=== PATIENT | male | born 1965 | race African-American/Black ===

== ENCOUNTER 2017-08-21 14:27 | Emergency (ER) | payer MEDICAID, OTHER ==
[~2017-08-21] VITALS: Ht 172.7 cm; Wt 98.0 kg
[~2017-08-21 14:27] MED LIST: EPSICON; KALETRA; LISINOPRIL
[2017-08-21] MEDS ORDERED: METF10002 PO (14:38)
[2017-08-21] MEDS ORDERED: ONDANSETRON HCL 4MG/2ML VIAL IV STA (16:36)
[2017-08-21] MEDS ORDERED: MORPHINE SULFATE 4 MG/ML CPJ (NOT FOR IM USE) IV STA (16:36)
[2017-08-21] MEDS ORDERED: SODIUM CHLORIDE 0.9% 1,000 ML IV ONE (16:36)
[2017-08-21 17:31] LABS: BASOPHILS % 0.7 % (0.0-2.0); EOSINOPHILS % 0.8 % (0.0-5.0); HEMATOCRIT. 38.5 % (42.0-52.0); HEMOGLOBIN. 13.6 g/dL (14.0-18.0); LYMPHOCYTES % 28.5 % (20.0-50.0); MEAN CORPUSCULAR HEMOGLOBIN 30.9 pg (28.0-32.0); MEAN CORPUSCULAR VOLUME 87.7 fL (80.0-94.0); MEAN PLATELET VOLUME 7.9 fl (7.4-10.4); MONOCYTES % 12.6 % (2.0-8.0); NEUTROPHILS % 57.4 % (40.0-76.0); PLATELET 259 x1000/uL (130-400); RED BLOOD CELL COUNT 4.39 mill/uL (4.7-6.1); RED CELL DISTRIBUTION WIDTH 13.4 % (11.6-14.6)
[2017-08-21 17:35] LABS: PROTHROMBIN TIME 10.7 sec (9.4-11.6)
[2017-08-21 17:42] LABS: CHLORIDE 101 mEq/L (98-107)
[2017-08-21 17:51] LABS: CARBON DIOXIDE 28 mEq/L (21-32); TROPONIN I < 0.02 ng/mL (0.00-0.04)
[2017-08-21] MEDS ORDERED: MORPHINE SULFATE 10 MG/ML CPJ IV NR (18:18)
[2017-08-21 19:02] LABS: CLARITY URINE CLEAR (CLEAR); COLOR URINE YELLOW (YELLOW); GLUCOSE URINE NEGATIVE (NEGATIVE); KETONES URINE NEGATIVE (NEGATIVE); LEUKOCYTE ESTERASE URINE NEGATIVE (NEGATIVE); NITRITE URINE NEGATIVE (NEGATIVE); OCCULT BLOOD URINE NEGATIVE (NEGATIVE); PH URINE 7.5 (4.5-8.0); PROTEIN URINE NEGATIVE (NEGATIVE); UROBILINOGEN URINE 0.2 E.U./dL (0.2-1.0)
[2017-08-21 23:23] VITALS: BP 131/79
== END 2017-08-21 23:26 | disposition home or self-care (01) ==
LOC: ER 15:56
DX: R19.7 Diarrhea, unspecified (principal); M25.511 Pain in right shoulder; R10.31 Right lower quadrant pain; G62.9 Polyneuropathy, unspecified; E11.65 Type 2 diabetes mellitus with hyperglycemia; F17.200 Nicotine dependence, unspecified, uncomplicated; R42 Dizziness and giddiness; R20.0 Anesthesia of skin
CPT/HCPCS: 36415; 71010; 73030; 74176; 80053; 81003; 83605; 83690; 83880; 84484; 85025; 85610; 93005; 96361; 96374; 96375; 99285; J2270; J2405; J7030

== ENCOUNTER 2018-04-09 18:01 | Emergency (ER) | payer MEDICAID ==
[~2018-04-09] VITALS: Ht 175.3 cm; Wt 91.0 kg
[~2018-04-09 18:01] MED LIST changes: +METF10004 PO
[2018-04-09 18:41] VITALS: BP 146/96
== END 2018-04-09 19:40 | disposition left against medical advice (07) ==
LOC: ER 19:30
DX: M79.641 Pain in right hand (principal); M25.531 Pain in right wrist; I10 Essential (primary) hypertension; E11.9 Type 2 diabetes mellitus without complications
CPT/HCPCS: 99281

== ENCOUNTER 2018-04-10 11:41 | Emergency (ER) | payer MEDICAID ==
[~2018-04-10] VITALS: Ht 175.3 cm; Wt 95.0 kg
[2018-04-10 11:53] VITALS: BP 158/99
[2018-04-10] MEDS ORDERED: IBUPROFEN 800MG TABLET PO ONE (12:15)
== END 2018-04-10 13:29 | disposition home or self-care (01) ==
LOC: ER 11:41
DX: M79.1 Myalgia (principal); G56.01 Carpal tunnel syndrome, right upper limb; E11.9 Type 2 diabetes mellitus without complications; I10 Essential (primary) hypertension; Z79.84 Long term (current) use of oral hypoglycemic drugs
CPT/HCPCS: 29125; 73120; 99284

== ENCOUNTER 2018-05-13 13:37 | Emergency (ER) | payer MEDICAID ==
[~2018-05-13] VITALS: Ht 175.3 cm; Wt 93.0 kg
[2018-05-13] MEDS ORDERED: IBUPROFEN 800MG TABLET PO ONE (15:00)
[2018-05-13 15:31] VITALS: BP 166/108
== END 2018-05-13 15:14 | disposition home or self-care (01) ==
LOC: ER 13:37
DX: M25.531 Pain in right wrist (principal); E11.9 Type 2 diabetes mellitus without complications; I10 Essential (primary) hypertension
CPT/HCPCS: 73110; 99284

== ENCOUNTER 2019-01-19 18:15 | Emergency (ER) | payer MEDICAID ==
[~2019-01-19] VITALS: Ht 175.3 cm; Wt 100.0 kg
[~2019-01-19 18:15] MED LIST changes: +METF-416 PO; -METF10004 PO
[2019-01-19] MEDS ORDERED: SODIUM CHLORIDE 0.9% 1,000 ML IV ONE ×2 (20:47→22:14)
[2019-01-19] MEDS ORDERED: KETOROLAC 15MG/ML VIAL IV ONE (21:00)
[2019-01-19] MEDS ORDERED: AMPICILLIN SOD/SULBACTAM NA 1.5 G in SODIUM CHLORIDE 0.9% 50 ML IV SCH (21:00)
[2019-01-19] MEDS ORDERED: DEXAMETHASONE 10 MG/ML VIAL IV ONE (21:00)
[2019-01-19 21:45] LABS: CLARITY URINE CLEAR (CLEAR); COLOR URINE YELLOW (YELLOW); KETONES URINE NEGATIVE (NEGATIVE); LEUKOCYTE ESTERASE URINE NEGATIVE (NEGATIVE); NITRITE URINE NEGATIVE (NEGATIVE); OCCULT BLOOD URINE NEGATIVE (NEGATIVE); PROTEIN URINE NEGATIVE (NEGATIVE); SPECIFIC GRAVITY URINE 1.039 (1.005-1.030)
[2019-01-19 21:48] LABS: BASOPHILS % 0.4 % (0.0-2.0); EOSINOPHILS % 0.9 % (0.0-5.0); HEMATOCRIT. 40.7 % (42.0-52.0); HEMOGLOBIN. 14.2 g/dL (14.0-18.0); LYMPHOCYTES % 11.2 % (20.0-50.0); MEAN CORPUSCULAR HEMOGLOBIN 31.2 pg (28.0-32.0); MEAN CORPUSCULAR VOLUME 89.1 fL (80.0-94.0); MEAN PLATELET VOLUME 9.1 fl (7.4-10.4); MONOCYTES % 11.5 % (2.0-8.0); PLATELET 374 x1000/uL (130-400); RED BLOOD CELL COUNT 4.56 mill/uL (4.7-6.1); RED CELL DISTRIBUTION WIDTH 14.6 % (11.6-14.6)
[2019-01-19 21:49] LABS: CHLORIDE 100 mEq/L (98-107)
[2019-01-19] MEDS ORDERED: HYDRALAZINE 20MG/ML VIAL IV ONE (22:00)
[2019-01-19] MEDS ORDERED: MORPHINE SULFATE 4 MG/ML CPJ (NOT FOR IM USE) IV ONE (23:00)
[2019-01-19] MEDS ORDERED: ONDANSETRON HCL 4MG/2ML INJ IV ONE (23:00)
[2019-01-20] MEDS ORDERED: IOHEXOL-300 100 ML BOTTLE ONE (00:56)
[2019-01-20 01:54] VITALS: BP 148/82
== END 2019-01-20 01:58 | disposition home or self-care (01) ==
LOC: ER 18:15 → CANBEDREQ 01-20 03:16
DX: K12.2 Cellulitis and abscess of mouth (principal); E11.65 Type 2 diabetes mellitus with hyperglycemia; I10 Essential (primary) hypertension
CPT/HCPCS: 36415; 70491; 80053; 81003; 85025; 87040; 87077; 87086; 87186; 96365; 96375; 99284; J0295; J0360; J1100; J1885; J2270; J2405; J7030; Q9967; Z7610

== ENCOUNTER 2019-01-21 12:31 | Emergency (ER) | payer MEDICAID ==
[~2019-01-21] VITALS: Ht 175.3 cm; Wt 81.0 kg
[2019-01-21] MEDS ORDERED: ONDANSETRON HCL 4MG/2ML INJ IV STA (15:15)
[2019-01-21] MEDS ORDERED: MORPHINE SULFATE 4 MG/ML CPJ (NOT FOR IM USE) IV STA (15:15)
[2019-01-21] MEDS ORDERED: VANCOMYCIN 1 G PREMIX 200 ML IV ONE (15:15)
[2019-01-21] MEDS ORDERED: SODIUM CHLORIDE 0.9% 1,000 ML IV ONE ×2 (15:15→16:29)
[2019-01-21] MEDS ORDERED: DEXAMETHASONE 10 MG/ML VIAL IV ONE (15:15)
[2019-01-21] MEDS ORDERED: PIPERACILLIN/TAZ 3.375G PREMIX 50 ML IV ONE (15:15)
[2019-01-21 15:44] LABS: BASOPHILS % 0.5 % (0.0-2.0); EOSINOPHILS % 0.3 % (0.0-5.0); HEMOGLOBIN. 11.8 g/dL (14.0-18.0); LYMPHOCYTES % 13.6 % (20.0-50.0); MEAN CORPUSCULAR HEMOGLOBIN 30.5 pg (28.0-32.0); MEAN PLATELET VOLUME 8.3 fl (7.4-10.4); MONOCYTES % 14.9 % (2.0-8.0); NEUTROPHILS % 70.7 % (40.0-76.0); PLATELET 332 x1000/uL (130-400); RED BLOOD CELL COUNT 3.85 mill/uL (4.7-6.1)
[2019-01-21 15:48] LABS: CHLORIDE 93 mEq/L (98-107)
[2019-01-21 15:49] LABS: INR 0.9; PROTHROMBIN TIME 9.4 sec (9.6-11.0)
[2019-01-21] MEDS ORDERED: KETOROLAC 30MG/ML VIAL IV ONE (16:15)
[2019-01-21] MEDS ORDERED: INSULIN REGULAR (HUMULIN R) 300UNITS/3ML SUBCUT ONE (16:30)
[2019-01-21] MEDS ORDERED: INSULIN REGULAR (HUMULIN R) 300UNITS/3ML IV ONE (16:30)
[2019-01-21 18:19] VITALS: BP 134/86
== END 2019-01-21 18:35 | disposition home or self-care (01) ==
LOC: ER 12:31
DX: L03.211 Cellulitis of face (principal); E11.65 Type 2 diabetes mellitus with hyperglycemia; E78.00 Pure hypercholesterolemia, unspecified; I10 Essential (primary) hypertension; F17.200 Nicotine dependence, unspecified, uncomplicated; Z79.899 Other long term (current) drug therapy
CPT/HCPCS: 36415; 80053; 82010; 82962; 83605; 84145; 84484; 85025; 85610; 87040; 96365; 96366; 96368; 96372; 96375; 99283; J1100; J1815; J1885; J2270; J2405; J2543; J3370; J7030

== ENCOUNTER 2020-02-07 12:19 | Inpatient (IN) | payer MEDICAID ==
[~2020-02-07] VITALS: Ht 172.7 cm; Wt 83.2 kg
[~2020-02-07 12:19] MED LIST changes: +ASPI-1160 PO; +EMTR1TAB13 MT; -EPSICON; -KALETRA
[2020-02-07] MEDS ORDERED: SODIUM CHLORIDE 0.9% 1,000 ML IV ONE ×2 (12:54→23:59)
[2020-02-07 14:01] LABS: BASOPHILS % 0.5 % (0.0-2.0); EOSINOPHILS % 0.9 % (0.0-5.0); HEMATOCRIT. 35.5 % (42.0-52.0); HEMOGLOBIN. 12.5 g/dL (14.0-18.0); LYMPHOCYTES % 22.7 % (20.0-50.0); MEAN CORPUSCULAR HEMOGLOBIN 30.7 pg (28.0-32.0); MEAN CORPUSCULAR VOLUME 87.3 fL (80.0-94.0); MEAN PLATELET VOLUME 7.6 fl (7.4-10.4); NEUTROPHILS % 62.9 % (40.0-76.0); PLATELET 305 x1000/uL (130-400); RED BLOOD CELL COUNT 4.06 mill/uL (4.7-6.1)
[2020-02-07 14:06] LABS: CHLORIDE 106 mEq/L (98-107)
[2020-02-07 14:10] LABS: ETHANOL BLOOD < 10 mg/dL
[2020-02-07 14:19] LABS: PROTHROMBIN TIME 11.1 sec (9.6-11.0)
[2020-02-07] MEDS ORDERED: SODIUM CHLORIDE 0.9% 1000ML BAG (SEPSIS BOLUS) IV ONE (14:30)
[2020-02-07 14:33] LABS: CLARITY URINE CLEAR (CLEAR); COLOR URINE YELLOW (YELLOW); KETONES URINE NEGATIVE (NEGATIVE); LEUKOCYTE ESTERASE URINE NEGATIVE (NEGATIVE); NITRITE URINE NEGATIVE (NEGATIVE); OCCULT BLOOD URINE NEGATIVE (NEGATIVE); PH URINE 6.5 (4.5-8.0); PROTEIN URINE NEGATIVE (NEGATIVE); SPECIFIC GRAVITY URINE 1.012 (1.005-1.030); UROBILINOGEN URINE 0.2 E.U./dL (0.2-1.0)
[2020-02-07 14:46] LABS: *AMPHETAMINES SCREEN URINE NEGATIVE (NEGATIVE); *BARBITURATES SCREEN URINE NEGATIVE (NEGATIVE); *COCAINE SCREEN URINE NEGATIVE (NEGATIVE); CANNABINOID URINE SCREEN NEGATIVE (NEGATIVE); METHADONE URINE SCREEN NEGATIVE (NEGATIVE); OPIATES URINE SCREEN NEGATIVE (NEGATIVE); PHENCYCLIDINE URINE SCREEN NEGATIVE (NEGATIVE)
[2020-02-07 14:48] LABS: *BENZODIAZEPINES SCREEN URINE NEGATIVE (NEGATIVE)
[2020-02-07] MEDS ORDERED: ONDANSETRON HCL 4MG/2ML INJ IV PRN (16:15)
[2020-02-07] MEDS ORDERED: PIPERACILLIN/TAZ 3.375G PREMIX 50 ML IV SCH (16:15)
[2020-02-07] MEDS ORDERED: DIPHENHYDRAMINE 50MG/ML VIAL IV PRN (16:15)
[2020-02-07] MEDS ORDERED: CLONIDINE 0.1MG TABLET PO PRN (16:15)
[2020-02-07 17:06] LABS: PHOSPHORUS 3.3 mg/dL (2.5-4.9)
[2020-02-07 23:00] VITALS: BP 141/100
[2020-02-07] MEDS ORDERED: IPRATROPIUM/ALBUTEROL 0.5-3(2.5)MG/3ML NEB HHN PRN (23:44)
[2020-02-08] VITALS: BP 152/105
[2020-02-08 04:00] VITALS: BP 122/90
[2020-02-08] MEDS: PIPERACILLIN/TAZOBACTAM 3.375 G in DEXT 5% WATER 100 ML IV SCH ×3 (06:30→13:46)
[2020-02-08 07:05] LABS: BASOPHILS % 0.5 % (0.0-2.0); EOSINOPHILS % 2.5 % (0.0-5.0); HEMATOCRIT. 30.6 % (42.0-52.0); HEMOGLOBIN. 10.7 g/dL (14.0-18.0); LYMPHOCYTES % 37.4 % (20.0-50.0); MEAN CORPUSCULAR HEMOGLOBIN 30.7 pg (28.0-32.0); MEAN CORPUSCULAR VOLUME 87.5 fL (80.0-94.0); MEAN PLATELET VOLUME 7.5 fl (7.4-10.4); MONOCYTES % 11.8 % (2.0-8.0); NEUTROPHILS % 47.8 % (40.0-76.0); PLATELET 251 x1000/uL (130-400); RED BLOOD CELL COUNT 3.49 mill/uL (4.7-6.1); RED CELL DISTRIBUTION WIDTH 14.2 % (11.6-14.6)
[2020-02-08 08:00] VITALS: BP 136/76
[2020-02-08] MEDS ORDERED: MAGNESIUM 2 G PREMIX 50 ML IV NR (08:00)
[2020-02-08 08:01] LABS: CHLORIDE 113 mEq/L (98-107)
[2020-02-08 08:30] LABS: LDL CHOLESTEROL 80 mg/dL (5-100)
[2020-02-08 08:31] LABS: HDL CHOLESTEROL 44 mg/dL (40-59)
[2020-02-08 12:00] VITALS: BP 137/95
[2020-02-08 13:47] VITALS: BP 137/85
== END 2020-02-08 15:12 | disposition home or self-care (01) | DRG 47 ==
LOC: ER 12:19 → 5WST 15:46 → EDBEDREQ 15:48 → EDBEDREQTM 15:48 → ENRESERV 21:53
PROVIDERS: ADMIT Internal Medicine; ATTEND Internal Medicine
DX: G45.9 Transient cerebral ischemic attack, unspecified (principal); E83.42 Hypomagnesemia; E78.00 Pure hypercholesterolemia, unspecified; I10 Essential (primary) hypertension; Z21 Asymptomatic human immunodeficiency virus [HIV] infection status; E11.9 Type 2 diabetes mellitus without complications; Z79.82 Long term (current) use of aspirin; Z79.84 Long term (current) use of oral hypoglycemic drugs; Z79.899 Other long term (current) drug therapy; Z87.891 Personal history of nicotine dependence
CPT/HCPCS: 36415; 71045; 80053; 80061; 80305; 80320; 81003; 83605; 83735; 83880; 84100; 84145; 84443; 84484; 85025; 86850; 86900; 93005; 93970; 97161; 97166; 99285; J2543; J3475; J7030; J7060; G0480

== ENCOUNTER 2022-11-28 13:28 | Inpatient (IN) | payer MEDICAID, OTHER ==
[~2022-11-28] VITALS: Ht 175.3 cm; Wt 88.5 kg
[2022-11-28] MEDS ORDERED: SODIUM CHLORIDE 0.9% 1,000 ML IV ONE ×2 (13:45→15:15)
[2022-11-28 14:34] LABS: BASOPHILS % 0.7 % (0.0-2.0); EOSINOPHILS % 0.9 % (0.0-5.0); HEMATOCRIT. 39.4 % (42.0-52.0); HEMOGLOBIN. 13.4 g/dL (14.0-18.0); LYMPHOCYTES % 25.6 % (20.0-50.0); MEAN CORPUSCULAR HEMOGLOBIN 29.8 pg (28.0-32.0); MEAN CORPUSCULAR VOLUME 87.5 fL (80.0-94.0); MEAN PLATELET VOLUME 9.4 fl (7.4-10.4); MONOCYTES % 11.8 % (2.0-8.0); PLATELET 343 x1000/uL (130-400); RED CELL DISTRIBUTION WIDTH 13.1 % (11.6-14.6)
[2022-11-28 14:37] LABS: BG BASE EXCESS 0.9 mmol/L (-2.0-2.0); BG CARBOXYHEMOGLOBIN 1.4 % (0.5-1.5); BG FRACTION INSPIRED OXYGEN 21; BG HCO3 ACT 25.2 mmol/L (22.0-26.0); BG METHEMOGLOBIN 0.3 % (0.0-1.5); BG OXYGEN SATURATION 95.9 % (92.0-98.5); BG OXYHEMOGLOBIN 94.3 % (94.0-97.0); BG PCO2 39.2 mmHg (35.0-45.0); BG PH 7.426 (7.350-7.450); BG PO2 82.6 mmHg (75.0-100.0); BG SAMPLE SITE RIGHT BRACHIAL; BG TOTAL HEMOGLOBIN 13.5 g/dL (12.0-18.0); BG VENT MODE ROOM AIR
[2022-11-28 14:46] LABS: CHLORIDE 96 mEq/L (98-107)
[2022-11-28 14:47] LABS: PROTHROMBIN TIME 10.3 sec (9.6-11.0)
[2022-11-28 14:52] LABS: BETA HYDROXYBUTYRATE 0.2 mMol/L (0.0-0.3); ETHANOL BLOOD < 10 mg/dL
[2022-11-28 15:13] LABS: CLARITY URINE CLEAR (CLEAR); COLOR URINE YELLOW (YELLOW); KETONES URINE NEGATIVE (NEGATIVE); LEUKOCYTE ESTERASE URINE NEGATIVE (NEGATIVE); NITRITE URINE NEGATIVE (NEGATIVE); OCCULT BLOOD URINE NEGATIVE (NEGATIVE); PH URINE 7.5 (4.5-8.0); PROTEIN URINE NEGATIVE (NEGATIVE); SPECIFIC GRAVITY URINE 1.041 (1.005-1.030)
[2022-11-28 15:42] LABS: *AMPHETAMINES SCREEN URINE NEGATIVE (NEGATIVE); *BARBITURATES SCREEN URINE NEGATIVE (NEGATIVE); *BENZODIAZEPINES SCREEN URINE NEGATIVE (NEGATIVE); *COCAINE SCREEN URINE PRESUMTIVE POSITIVE (NEGATIVE); CANNABINOID URINE SCREEN NEGATIVE (NEGATIVE); METHADONE URINE SCREEN NEGATIVE (NEGATIVE); OPIATES URINE SCREEN NEGATIVE (NEGATIVE); PHENCYCLIDINE URINE SCREEN NEGATIVE (NEGATIVE)
[2022-11-29 11:00] VITALS: BP 145/89
[2022-11-29 11:30] VITALS: BP 145/97
[2022-11-29] MEDS ORDERED: DEXTROSE 50% WATER 50ML SYRINGE IV PRN (12:15)
[2022-11-29] MEDS ORDERED: ONDANSETRON HCL 4MG/2ML INJ IV PRN (12:15)
[2022-11-29] MEDS ORDERED: ACETAMINOPHEN 325MG TABLET PO PRN (12:15)
[2022-11-29] MEDS: BLOOD SUGAR DIAGNOSTIC STRIP TEST SCH ×2 (12:20→17:46)
[2022-11-29] MEDS ORDERED: INSULIN GLARGINE 100 UNITS/ML SUBCUT NR (12:30)
[2022-11-29] MEDS ORDERED: INSULIN LISPRO 100 UNITS/ML SUBCUT SCH (12:50)
[2022-11-29] MEDS ORDERED: INSU100I28 SQ (17:07)
[2022-11-29] MEDS ORDERED: CLOT15CR27 TP (17:07)
[2022-11-29] MEDS ORDERED: CLOTRIMAZOLE 1% CREAM 15GM TOP SCH (18:00)
[2022-11-29] MEDS ORDERED: INSULIN GLARGINE 100 UNITS/ML SUBCUT SCH (22:00)
== END 2022-11-29 17:30 | disposition home or self-care (01) | DRG 282 ==
LOC: ER 13:28 → 6EST 11-29 03:26 → EDBEDREQSVC 11-29 03:30 → EDBEDREQDT 11-29 03:30 → EDBEDREQTM 11-29 03:30 → EDBEDREQ 11-29 03:30 → 6EST 11-29 10:27
PROVIDERS: ADMIT Internal Medicine; ATTEND Internal Medicine
DX: K85.90 Acute pancreatitis without necrosis or infection, unspecified (principal); E87.1 Hypo-osmolality and hyponatremia; B37.49 Other urogenital candidiasis; E11.65 Type 2 diabetes mellitus with hyperglycemia; E78.00 Pure hypercholesterolemia, unspecified; Z20.822 Contact with and (suspected) exposure to COVID-19; F10.10 Alcohol abuse, uncomplicated; F14.90 Cocaine use, unspecified, uncomplicated; I10 Essential (primary) hypertension; Z86.73 Personal history of transient ischemic attack (TIA), and cerebral infarction without residual deficits; Z79.899 Other long term (current) drug therapy
CPT/HCPCS: 36415; 36600; 74176; 80053; 80305; 80320; 81003; 82010; 82375; 82805; 82962; 83036; 85025; 87426; 93005; 99291; C9803; J1815; J7030; G0480

== ENCOUNTER 2023-06-14 03:30 | Emergency (ER) | payer OTHER ==
[~2023-06-14] VITALS: Ht 177.8 cm; Wt 80.0 kg
[~2023-06-14 03:30] MED LIST changes: +CLOT15CR27 TP; +INSU100I28 SQ
[2023-06-14 03:38] VITALS: O2SAT 99
[2023-06-14 04:26] LABS: BASOPHILS % 0.6 % (0.0-2.0); EOSINOPHILS % 0.4 % (0.0-5.0); HEMATOCRIT. 31.6 % (42.0-52.0); HEMOGLOBIN. 11.1 g/dL (14.0-18.0); MEAN CORPUSCULAR HEMOGLOBIN 30.8 pg (28.0-32.0); MEAN CORPUSCULAR HGB CONC 35.2 g/dL (31.0-37.0); MEAN CORPUSCULAR VOLUME 87.5 fL (80.0-94.0); MEAN PLATELET VOLUME 7.6 fl (7.4-10.4); MONOCYTES % 11.1 % (2.0-8.0); NEUTROPHILS % 63.9 % (40.0-76.0); PLATELET 350 x1000/uL (130-400); RED BLOOD CELL COUNT 3.61 mill/uL (4.7-6.1); RED CELL DISTRIBUTION WIDTH 13.8 % (11.6-14.6); WHITE BLOOD COUNT 8.9 x1000/uL (4.5-11.0)
[2023-06-14] MEDS ORDERED: SODIUM CHLORIDE 0.9% 1000ML BAG (SEPSIS BOLUS) IV ONE (04:30)
[2023-06-14 04:33] LABS: CHLORIDE 106 mEq/L (98-107); INDEX HEMOLYSI 1 (1-3); INDEX ICTERIC 1 (1-4); INDEX LIPEMIC 1 (1-3); POTASSIUM 3.4 mEq/L (3.5-5.1); SODIUM 138 mEq/L (136-145)
[2023-06-14 04:40] LABS: ALANINE AMINOTRANSFERASE 21 IU/L (13-61); ALBUMIN 3.5 g/dL (3.4-5.0); ASPARTATE AMINOTRANSFERASE 15 IU/L (15-37); BILIRUBIN TOTAL 0.9 mg/dL (0.1-1.0); CALCIUM 8.1 mg/dL (8.5-10.1); CARBON DIOXIDE 19 mEq/L (21-32); CREATININE 3.2 mg/dL (0.6-1.3); GLUCOSE 117 mg/dL (70-105); UREA NITROGEN BLOOD 21 mg/dL (7-21)
[2023-06-14 04:42] LABS: PROTHROMBIN TIME 10.9 sec (9.6-11.0)
[2023-06-14 05:01] LABS: LACTIC ACID 6.4 mmol/L (0.4-2.0)
[2023-06-14] MEDS ORDERED: AZIT250T12 MT (05:56)
[2023-06-14] MEDS ORDERED: TOPUD MT (05:56)
[2023-06-14] MEDS ORDERED: PROM25TA13 MT (05:56)
[2023-06-14 07:02] LABS: CLARITY URINE CLEAR (CLEAR); COLOR URINE YELLOW (YELLOW); GLUCOSE URINE NEGATIVE (NEGATIVE); KETONES URINE TRACE (NEGATIVE); LEUKOCYTE ESTERASE URINE NEGATIVE (NEGATIVE); NITRITE URINE NEGATIVE (NEGATIVE); OCCULT BLOOD URINE NEGATIVE (NEGATIVE); PH URINE 5.5 (4.5-8.0); PROTEIN URINE 1+ (NEGATIVE); SPECIFIC GRAVITY URINE 1.017 (1.005-1.030)
[2023-06-14 07:43] LABS: SQUAMOUS EPITHELIAL CELL URINE FEW /lpf (RARE/1+)
[2023-06-14 07:44] LABS: BACTERIA URINE NONE SEEN; RBC URINE 0-2 /hpf (0-2); WBC URINE 0-2 /hpf (0-2)
[2023-06-14 07:55] VITALS: BP 114/72; PULSE 76; RESP 17; TEMP 98.3
== END 2023-06-14 08:03 | disposition home or self-care (01) ==
LOC: ER 03:38 → CANBEDREQ 22:13
DX: R19.7 Diarrhea, unspecified (principal); R55 Syncope and collapse; E11.9 Type 2 diabetes mellitus without complications; E78.00 Pure hypercholesterolemia, unspecified; I10 Essential (primary) hypertension; Z86.73 Personal history of transient ischemic attack (TIA), and cerebral infarction without residual deficits
CPT/HCPCS: 99283; 96360; 80053; 81003; 83605; 83690; 85025; 85610; 36415; J7030

== ENCOUNTER 2024-07-25 09:49 | Emergency (ER) | payer OTHER ==
[~2024-07-25] VITALS: Ht 177.8 cm; Wt 89.0 kg
[~2024-07-25 09:49] MED LIST changes: +AZIT250T12 MT; +PROM25TA13 MT; +TOPUD MT
[2024-07-25 09:52] VITALS: BP 156/72; RESP 18; TEMP 98.5; O2SAT 99
[2024-07-25 10:04] VITALS: PULSE 84; O2SAT 100
[2024-07-25] MEDS ORDERED: OFLO5DRO4 RIGHT EAR (11:04)
[2024-07-25] MEDS ORDERED: ACET-2708 MT (11:10)
== END 2024-07-25 11:27 | disposition home or self-care (01) ==
LOC: ER 09:49
DX: H60.91 Unspecified otitis externa, right ear (principal); I10 Essential (primary) hypertension; E11.9 Type 2 diabetes mellitus without complications; E78.00 Pure hypercholesterolemia, unspecified; Z79.4 Long term (current) use of insulin; Z79.82 Long term (current) use of aspirin; Z86.73 Personal history of transient ischemic attack (TIA), and cerebral infarction without residual deficits
CPT/HCPCS: 99283

== ENCOUNTER 2024-11-21 17:03 | Emergency (ER) | payer OTHER, MEDICAID ==
[~2024-11-21] VITALS: Ht 175.3 cm; Wt 81.6 kg
[~2024-11-21 17:03] MED LIST changes: +ACET-2708 MT; +OFLO5DRO4 RIGHT EAR
[2024-11-21 17:07] VITALS: O2SAT 100
[2024-11-21 17:11] VITALS: BP 126/89; PULSE 100; RESP 16; TEMP 36.9; O2SAT 99
[2024-11-21 18:27] LABS: BASOPHILS % 0.8 % (0.0-2.0); EOSINOPHILS % 0.4 % (0.0-5.0); HEMATOCRIT. 38.5 % (42.0-52.0); HEMOGLOBIN. 13.1 g/dL (14.0-18.0); LYMPHOCYTES % 27.4 % (20.0-50.0); MEAN CORPUSCULAR HEMOGLOBIN 31.1 pg (28.0-32.0); MEAN CORPUSCULAR HGB CONC 34.1 g/dL (31.0-37.0); MEAN CORPUSCULAR VOLUME 91.4 fL (80.0-94.0); MEAN PLATELET VOLUME 8.2 fl (7.4-10.4); MONOCYTES % 11.7 % (2.0-8.0); NEUTROPHILS % 59.7 % (40.0-76.0); PLATELET 375 x1000/uL (130-400); RED BLOOD CELL COUNT 4.21 mill/uL (4.7-6.1); RED CELL DISTRIBUTION WIDTH 13.6 % (11.6-14.6); WHITE BLOOD COUNT 6.5 x1000/uL (4.5-11.0)
[2024-11-21] MEDS ORDERED: ONDANSETRON 4MG ODT PO STA (18:39)
[2024-11-21] MEDS ORDERED: VISCOUS LIDOCAINE 2% 15 ML UDC PO STA (18:39)
[2024-11-21] MEDS ORDERED: MAGNESIUM/ALUMINUM HYDROXIDE/SIMETHICONE 30ML UDC PO STA (18:39)
[2024-11-21 18:44] LABS: CHLORIDE 104 mEq/L (98-107); POTASSIUM 4.3 mEq/L (3.5-5.1); SODIUM 136 mEq/L (136-145)
[2024-11-21] MEDS ORDERED: FAMOTIDINE 20MG TABLET PO ONE (18:45)
[2024-11-21 18:46] LABS: CALCIUM 9.8 mg/dL (8.7-10.4); CARBON DIOXIDE 24 mEq/L (21-32)
[2024-11-21 18:50] LABS: CREATININE 1.1 mg/dL (0.6-1.3)
[2024-11-21 18:51] LABS: GLUCOSE 182 mg/dL (70-105); UREA NITROGEN BLOOD 12 mg/dL (9-23)
[2024-11-21 20:37] LABS: PROTHROMBIN TIME 10.9 sec (9.6-11.0)
[2024-11-21 20:42] LABS: ETHANOL BLOOD 50 mg/dL (<10)
[2024-11-21 20:43] LABS: ALANINE AMINOTRANSFERASE 16 IU/L (10-49); ALBUMIN 4.5 g/dL (3.2-4.8); ASPARTATE AMINOTRANSFERASE 17 IU/L (<34); BILIRUBIN DIRECT 0.2 mg/dL (<=3.0)
[2024-11-21 20:43] LABS: CLARITY URINE CLEAR (CLEAR); COLOR URINE YELLOW (YELLOW); GLUCOSE URINE NEGATIVE (NEGATIVE); KETONES URINE NEGATIVE (NEGATIVE); LEUKOCYTE ESTERASE URINE NEGATIVE (NEGATIVE); NITRITE URINE NEGATIVE (NEGATIVE); OCCULT BLOOD URINE NEGATIVE (NEGATIVE); PROTEIN URINE NEGATIVE (NEGATIVE); SPECIFIC GRAVITY URINE 1.012 (1.005-1.030); UROBILINOGEN URINE 0.2 E.U./dL (0.2-1.0)
[2024-11-21 20:44] LABS: BILIRUBIN TOTAL 0.8 mg/dL (0.1-1.0); PROTEIN TOTAL 7.7 g/dL (6.0-8.3)
[2024-11-21 20:50] LABS: TROPONIN I HIGH SENSITIVITY < 4 ng/L (3.0-53)
[2024-11-21 20:51] LABS: *AMPHETAMINES SCREEN URINE NEGATIVE (NEGATIVE); *BARBITURATES SCREEN URINE NEGATIVE (NEGATIVE); *BENZODIAZEPINES SCREEN URINE NEGATIVE (NEGATIVE); *COCAINE SCREEN URINE PRESUMPTIVE POSITIVE (NEGATIVE); CANNABINOID URINE SCREEN NEGATIVE (NEGATIVE); ECSTASY MDMA SCREEN URINE NEGATIVE (NEGATIVE); METHADONE URINE SCREEN NEGATIVE (NEGATIVE); OPIATES URINE SCREEN NEGATIVE (NEGATIVE); PHENCYCLIDINE URINE SCREEN NEGATIVE (NEGATIVE)
[2024-11-21] MEDS ORDERED: IBUP-2030 MT (21:25)
[2024-11-21] MEDS ORDERED: ONDA4TAB50 MT (21:25)
== END 2024-11-21 22:33 | disposition home or self-care (01) ==
LOC: ER 17:03
DX: R10.12 Left upper quadrant pain (principal); E11.9 Type 2 diabetes mellitus without complications; E78.00 Pure hypercholesterolemia, unspecified; I10 Essential (primary) hypertension; Z86.73 Personal history of transient ischemic attack (TIA), and cerebral infarction without residual deficits; Z79.4 Long term (current) use of insulin; Z79.82 Long term (current) use of aspirin; Z79.899 Other long term (current) drug therapy
CPT/HCPCS: 36415; 71045; 73030; 74176; 80048; 80076; 80305; 80320; 81003; 83880; 84484; 85025; 93005; 99285; G0480

== ENCOUNTER 2024-12-06 17:15 | Emergency (ER) | payer OTHER, MEDICAID ==
[~2024-12-06] VITALS: Ht 172.7 cm; Wt 82.0 kg
[~2024-12-06 17:15] MED LIST changes: +IBUP-2030 MT; +ONDA4TAB50 MT
[2024-12-06 17:17] VITALS: PULSE 68; O2SAT 98
[2024-12-06 17:36] VITALS: BP 120/83; RESP 14; TEMP 36.5; O2SAT 99
[2024-12-06] MEDS: CYCLOBENZAPRINE 10MG TABLET PO ONE (18:15)
[2024-12-06] MEDS ORDERED: NAPR220C61 MT (19:03)
[2024-12-06] MEDS ORDERED: CYCL10TA21 MT (19:03)
== END 2024-12-06 19:19 | disposition home or self-care (01) ==
LOC: ER 17:15
DX: G89.11 Acute pain due to trauma (principal); M54.50 Low back pain, unspecified; E11.9 Type 2 diabetes mellitus without complications; E78.00 Pure hypercholesterolemia, unspecified; I10 Essential (primary) hypertension; Z86.73 Personal history of transient ischemic attack (TIA), and cerebral infarction without residual deficits; Z79.4 Long term (current) use of insulin; Z79.82 Long term (current) use of aspirin; W10.9XXA Fall (on) (from) unspecified stairs and steps, initial encounter; Y93.89 Activity, other specified; Y92.89 Other specified places as the place of occurrence of the external cause; Y99.8 Other external cause status
CPT/HCPCS: 72131; 73030; 99284